=== PATIENT | female | born 1980 | race Caucasian/White ===

== ENCOUNTER 2017-05-17 05:44 | Inpatient (IN) ==
[2017-05-07 11:16] LABS: Apearance,Urine CLEAR (Clear); Bilirubin,Urine Negative (Negative); Blood, Urine Small mg/dL (Negative); Glucose,Urine (UA) Negative (Negative); Ketones,Urine Negative (Negative); Nitrite,Urine Negative (Negative); Protein,Urine Negative; RBC,Urine <1 /HPF (0-4); Squamous Epithelial Cell,Urine Occasional /HPF (0-10); Urine Color Straw (Yellow); Urine Specific Gravity 1.004 (1.001-1.035); Urine Urobilinogen < 2.0 EU/DL (0.2-1.0)
[2017-05-07 11:17] LABS: Immature Granulocytes % 1.5 %; Immature Granulocytes Absolute 0.13 #; Lymphocytes # 0.5 10*3/uL (1.4-4.0); Lymphocytes % 5.8 % (21.3-54.2); Mean Corpuscular Hemoglobin 20 PG (27-34); Mean Platelet Volume 10.5 FL (9.6-12.0); Monocytes # 0.1 10*3/uL (0.11-0.8); Monocytes % 1.6 % (1.7-12.7); Neutrophils # 7.8 10*3/uL (1.4-7.4); Neutrophils % 91.1 % (38.7-73.9); Platelet Count 182 T/CUMM (130-400); Red Blood Count 3.47 MC/CUMM (3.8-5.5); Red Cell Distribution Width 17.1 % (9.3-17.3); White Blood Count 8.5 T/CUMM (4-12)
[2017-05-07 11:23] LABS: PT Patient Result 10.2 SECS; Partial Thromboplastin Time 21.7 SECS (0-40)
[2017-05-07 11:44] LABS: Eosinophils 1 % (0-10); Hypochromasia 1+; Lymphocytes 5 % (20-55); Microcytosis 1+; Ovalocytes Few; Platelet Estimate Adequate; Segmented Neutrophils 90 % (50-85); Total Cells Counted 100
[2017-05-07 11:49] LABS: Calcium 8.4 MG/DL (8.5-10.1); Osmolality,Calculated 280.5 MOS/KG (273-304); Potassium 4.1 MMOL/L (3.5-5.1)
[~2017-05-17 05:44] MED LIST: SODIUM CHLORIDE 0.9% 250 ML IV PRN
[2017-05-17] MEDS ORDERED: CEFUROXIME INJ 1,500 MG in SODIUM CHLORIDE 0.9% 100 ML IV ONE (06:00)
[2017-05-17] MEDS ORDERED: methylPREDNISolone SOD SUC INJ 500 MG in SODIUM CHLORIDE 0.9% 100 ML IV ONE (06:00)
[2017-05-17] MEDS ORDERED: BUPIVACAINE LIPOSOMAL 20 ML/266 MG VIAL INFILTRAT ONE (06:00)
[2017-05-17] MEDS ORDERED: TISSUE ADHESIVE 1 EACH APPLICATOR TOP ONE ×2 (06:32→06:33)
[2017-05-17] MEDS ORDERED: CEFUROXIME 1,500 MG VIAL ONE (06:52)
[2017-05-17] MEDS ORDERED: SODIUM CHLORIDE 0.9% 50 ML IV ONE (06:53)
[2017-05-17] MEDS ORDERED: methylPREDNISolone SOD SUC 1,000 MG/8 ML VIAL ONE (07:02)
[2017-05-17] MEDS ORDERED: ONDANSETRON 4 MG/2 ML VIAL ONE (07:15)
[2017-05-17] MEDS ORDERED: LIDOCAINE 2% 5 ML VIAL ONE (07:15)
[2017-05-17] MEDS ORDERED: PROPOFOL 200 MG/20 ML VIAL IV ONE (07:15)
[2017-05-17] MEDS ORDERED: ROCURONIUM 100 MG/10 ML VIAL IV ONE (07:15)
[2017-05-17] MEDS ORDERED: LACTATED RINGERS 1,000 ML IV SCH (07:30)
[2017-05-17] MEDS ORDERED: THROMBIN TOPICAL (RECOMBINANT) 5,000 UNIT VIAL TOP ONE (07:30)
[2017-05-17] MEDS ORDERED: SUGAMMADEX 200 MG/2 ML VIAL IV ONE (09:40)
[2017-05-17] MEDS ORDERED: ONDANSETRON 4 MG/2 ML VIAL IV PRN (10:07)
[2017-05-17] MEDS ORDERED: SEVOFLURANE 1 UNIT/15 MINUTE INH ONE (10:40)
[2017-05-17] MEDS ORDERED: MIDAZOLAM 2 MG/2 ML VIAL ONE (10:41)
[2017-05-17] MEDS ORDERED: SODIUM CHLORIDE 0.9% 1,000 ML IV ONE (10:41)
[2017-05-17 10:45] LABS: Apearance,Urine CLEAR (Clear); Bilirubin,Urine Negative (Negative); Blood, Urine Negative (Negative); Glucose,Urine (UA) Negative (Negative); Ketones,Urine Negative (Negative); Mucus,Urine Occasional /LPF (Occasional); Nitrite,Urine Negative (Negative); Protein,Urine Negative; RBC,Urine 1 /HPF (0-4); Squamous Epithelial Cell,Urine Occasional /HPF (0-10); Urine Color Yellow (Yellow); Urine Specific Gravity 1.017 (1.001-1.035); Urine Urobilinogen < 2.0 EU/DL (0.2-1.0); WBC,Urine <1 /HPF (0-6)
[2017-05-17 11:14] LABS: Basophils % 0.1 % (0.0-0.8); Immature Granulocytes % 1.8 %; Immature Granulocytes Absolute 0.18 #; Lymphocytes # 0.4 10*3/uL (1.4-4.0); Lymphocytes % 3.9 % (21.3-54.2); Mean Corpuscular HGB Conc 27.6 GM/DL (32-36); Mean Corpuscular Hemoglobin 20 PG (27-34); Mean Platelet Volume 9.6 FL (9.6-12.0); Monocytes # 0.1 10*3/uL (0.11-0.8); Monocytes % 1.3 % (1.7-12.7); Neutrophils # 9.1 10*3/uL (1.4-7.4); Neutrophils % 92.9 % (38.7-73.9); Platelet Count 275 T/CUMM (130-400); Red Blood Count 3.52 MC/CUMM (3.8-5.5); Red Cell Distribution Width 17.4 % (9.3-17.3); White Blood Count 9.8 T/CUMM (4-12)
[2017-05-17 11:16] LABS: Hemoglobin 6.9 GM/DL (12.0-16.0)
[2017-05-17 11:22] LABS: Calcium 7.6 MG/DL (8.5-10.1); Osmolality,Calculated 280.7 MOS/KG (273-304); Potassium 4.5 MMOL/L (3.5-5.1)
[2017-05-17 11:26] LABS: Band Neutrophils 14 % (0-10); Eosinophils 1 % (0-10); Lymphocytes 3 % (20-55); Segmented Neutrophils 80 % (50-85); Total Cells Counted 100
[2017-05-17 11:27] LABS: Anisocytosis 1+; Poikilocytosis 1+; Polychromasia 1+
[2017-05-17] MEDS: POTASSIUM CHLORIDE INJ 10 MEQ in SODIUM CHLORIDE 0.45% 1,000 ML IV SCH ×3 (11:45→22:11)
[2017-05-17] MEDS: HYDROmorphone 2 MG/1 ML VIAL IV PRN ×2 (12:23→18:14)
[2017-05-17] MEDS: KETOROLAC 15 MG/1 ML VIAL IV SCH ×2 (12:51→16:28)
[2017-05-17 13:26] LABS: PT Patient Result 10.9 SECS; Partial Thromboplastin Time 21.9 SECS (0-40)
[2017-05-17] MEDS ORDERED: INFLUENZA VIRUS VACCINE 0.5 ML SYRINGE IM ONE (13:28)
[2017-05-17] MEDS ORDERED: PNEUMOCOCCAL VACCINE (23 VALENT) 0.5 ML VIAL IM ONE (13:32)
[2017-05-17] MEDS: GABAPENTIN 100 MG CAPSULE PO SCH ×2 (15:37→22:15)
[2017-05-17] MEDS: ACETAMINOPHEN INJ 1,000 MG in PREMIX 1 EACH IV SCH ×2 (15:41→22:16)
[2017-05-17] MEDS: CEFUROXIME INJ 1,500 MG in SODIUM CHLORIDE 0.9% 50 ML IV SCH (18:18)
[2017-05-17] MEDS ORDERED: CYCLOBENZAPRINE 10 MG TABLET PO PRN (23:27)
[2017-05-18] MEDS: PYRIDOSTIGMINE 60 MG TABLET PO SCH ×6 (00:22→22:02)
[2017-05-18] MEDS: GABAPENTIN 400 MG CAPSULE PO SCH ×5 (00:23→20:48)
[2017-05-18] MEDS: HYDROmorphone 2 MG/1 ML VIAL IV PRN ×4 (00:57→20:47)
[2017-05-18] MEDS: POTASSIUM CHLORIDE INJ 10 MEQ in SODIUM CHLORIDE 0.45% 1,000 ML IV SCH ×2 (03:59→06:01)
[2017-05-18 04:03] LABS: Hemoglobin 7.9 GM/DL (12.0-16.0); Immature Granulocytes % 0.9 %; Immature Granulocytes Absolute 0.09 #; Lymphocytes # 0.6 10*3/uL (1.4-4.0); Lymphocytes % 5.7 % (21.3-54.2); Mean Corpuscular HGB Conc 30.4 GM/DL (32-36); Mean Corpuscular Hemoglobin 23 PG (27-34); Mean Corpuscular Volume 74.3 FL (87-102); Mean Platelet Volume 9.7 FL (9.6-12.0); Monocytes # 0.6 10*3/uL (0.11-0.8); Monocytes % 5.6 % (1.7-12.7); Neutrophils # 9.1 10*3/uL (1.4-7.4); Neutrophils % 87.8 % (38.7-73.9); Platelet Count 314 T/CUMM (130-400); Red Cell Distribution Width 19.9 % (9.3-17.3); White Blood Count 10.4 T/CUMM (4-12)
[2017-05-18 04:22] LABS: Calcium 8.1 MG/DL (8.5-10.1); Osmolality,Calculated 277.4 MOS/KG (273-304); Potassium 4.4 MMOL/L (3.5-5.1)
[2017-05-18] MEDS: ACETAMINOPHEN 500 MG TABLET PO SCH ×4 (05:56→20:47)
[2017-05-18] MEDS ORDERED: traMADol 50 MG TABLET PO PRN (06:00)
[2017-05-18] MEDS: CEFUROXIME INJ 1,500 MG in SODIUM CHLORIDE 0.9% 50 ML IV SCH (06:01)
[2017-05-18] MEDS ORDERED: CELECOXIB 200 MG CAPSULE PO SCH (09:00)
[2017-05-18] MEDS: CELECOXIB 200 MG CAPSULE PO SCH ×2 (09:34→20:47)
[2017-05-18] MEDS: PANTOPRAZOLE 40 MG VIAL IV SCH (09:34)
[2017-05-18] MEDS: busPIRone 10 MG TABLET PO SCH ×4 (09:35→20:49)
[2017-05-18] MEDS: ESCITALOPRAM 10 MG TABLET PO SCH (09:36)
[2017-05-18] MEDS: predniSONE 20 MG TABLET PO SCH (09:36)
[2017-05-18] MEDS ORDERED: PYRIDOSTIGMINE 60 MG TABLET PO SCH (12:11)
[2017-05-18] MEDS ORDERED: CYCLOBENZAPRINE 10 MG TABLET PO PRN (12:11)
[2017-05-18] MEDS ORDERED: NON-FORMULARY MEDICATION (Gabapentin [Neurontin] 800 MG) PO SCH (13:00)
[2017-05-19] MEDS: busPIRone 10 MG TABLET PO SCH ×7 (00:59→21:07)
[2017-05-19] MEDS: HYDROmorphone 2 MG/1 ML VIAL IV PRN ×5 (03:45→22:35)
[2017-05-19 04:09] LABS: Basophils % 0.1 % (0.0-0.8); Hematocrit 25.5 VOL% (35.7-47.0); Hemoglobin 7.6 GM/DL (12.0-16.0); Immature Granulocytes % 0.7 %; Immature Granulocytes Absolute 0.06 #; Lymphocytes # 1.3 10*3/uL (1.4-4.0); Lymphocytes % 15.1 % (21.3-54.2); Mean Corpuscular HGB Conc 29.8 GM/DL (32-36); Mean Corpuscular Hemoglobin 22 PG (27-34); Mean Platelet Volume 10.1 FL (9.6-12.0); Monocytes # 0.6 10*3/uL (0.11-0.8); Monocytes % 6.7 % (1.7-12.7); Neutrophils # 6.7 10*3/uL (1.4-7.4); Neutrophils % 77.4 % (38.7-73.9); Platelet Count 309 T/CUMM (130-400); Red Cell Distribution Width 20.2 % (9.3-17.3); White Blood Count 8.6 T/CUMM (4-12)
[2017-05-19 04:38] LABS: Calcium 8.1 MG/DL (8.5-10.1); Osmolality,Calculated 284.1 MOS/KG (273-304); Potassium 3.8 MMOL/L (3.5-5.1)
[2017-05-19] MEDS: ACETAMINOPHEN 500 MG TABLET PO SCH ×5 (05:23→21:06)
[2017-05-19] MEDS: PYRIDOSTIGMINE 60 MG TABLET PO SCH ×6 (07:20→21:06)
[2017-05-19] MEDS: PANTOPRAZOLE 40 MG VIAL IV SCH (08:30)
[2017-05-19] MEDS: CELECOXIB 200 MG CAPSULE PO SCH ×2 (08:30→21:06)
[2017-05-19] MEDS: DILTIAZEM CD 240 MG CAPSULE PO SCH (08:30)
[2017-05-19] MEDS: ESCITALOPRAM 10 MG TABLET PO SCH (08:30)
[2017-05-19] MEDS: GABAPENTIN 400 MG CAPSULE PO SCH ×4 (08:31→21:06)
[2017-05-19] MEDS: predniSONE 20 MG TABLET PO SCH (08:31)
[2017-05-19] MEDS ORDERED: predniSONE 20 MG TABLET PO SCH (09:00)
[2017-05-19] MEDS ORDERED: NON-FORMULARY MEDICATION (Esomeprazole Magnesium [Nexium] 40 MG) PO SCH (09:00)
[2017-05-19] MEDS ORDERED: CELECOXIB 200 MG CAPSULE PO SCH (09:00)
[2017-05-19] MEDS ORDERED: ESCITALOPRAM 10 MG TABLET PO SCH (09:00)
[2017-05-20] MEDS: ACETAMINOPHEN 500 MG TABLET PO SCH ×2 (04:43→09:15)
[2017-05-20 06:15] LABS: Eosinophils # 0.1 10*3/uL (0.0-0.87); Eosinophils % 0.5 % (0.00-10.9); Hematocrit 25.8 VOL% (35.7-47.0); Hemoglobin 7.5 GM/DL (12.0-16.0); Immature Granulocytes % 1.1 %; Lymphocytes # 1.9 10*3/uL (1.4-4.0); Lymphocytes % 20.2 % (21.3-54.2); Mean Corpuscular HGB Conc 29.1 GM/DL (32-36); Mean Corpuscular Hemoglobin 22 PG (27-34); Mean Corpuscular Volume 75.7 FL (87-102); Mean Platelet Volume 9.9 FL (9.6-12.0); Monocytes # 0.7 10*3/uL (0.11-0.8); Monocytes % 7.8 % (1.7-12.7); Neutrophils # 6.5 10*3/uL (1.4-7.4); Neutrophils % 70.4 % (38.7-73.9); Platelet Count 295 T/CUMM (130-400); Red Blood Count 3.41 MC/CUMM (3.8-5.5); Red Cell Distribution Width 20.1 % (9.3-17.3); White Blood Count 9.3 T/CUMM (4-12)
[2017-05-20] MEDS: PYRIDOSTIGMINE 60 MG TABLET PO SCH ×2 (06:44→09:17)
[2017-05-20] MEDS: HYDROmorphone 2 MG/1 ML VIAL IV PRN ×2 (06:44→11:18)
[2017-05-20 06:47] LABS: Calcium 8.4 MG/DL (8.5-10.1); Osmolality,Calculated 282.1 MOS/KG (273-304); Potassium 4.1 MMOL/L (3.5-5.1)
[2017-05-20] MEDS: GABAPENTIN 400 MG CAPSULE PO SCH ×2 (09:15→12:05)
[2017-05-20] MEDS: busPIRone 10 MG TABLET PO SCH (09:15)
[2017-05-20] MEDS: predniSONE 20 MG TABLET PO SCH (09:15)
[2017-05-20] MEDS: ESCITALOPRAM 10 MG TABLET PO SCH (09:15)
[2017-05-20] MEDS: DILTIAZEM CD 240 MG CAPSULE PO SCH (09:16)
[2017-05-20] MEDS: PANTOPRAZOLE 40 MG VIAL IV SCH (09:20)
[2017-05-20] MEDS: CELECOXIB 200 MG CAPSULE PO SCH (09:24)
[2017-05-20] MEDS ORDERED: FLUCONAZOLE 200 MG TABLET PO SCH (11:00)
[2017-05-20] MEDS ORDERED: NYSTATIN 500,000 UNIT/5 ML UDCUP SWISH/SWAL SCH (13:00)
[2017-05-24] MEDS ORDERED: ERGOCALCIFEROL 50,000 UNIT CAPSULE PO SCH (23:30)
[2017-05-25] MEDS ORDERED: ERGOCALCIFEROL 50,000 UNIT CAPSULE PO SCH (09:00)
== END 2017-05-20 16:00 | disposition home or self-care (01) | DRG 165 ==
LOC: N.SDSINP 05:44 → N.ICU 10:42 → N.TELES 05-18 11:23
PROVIDERS: ADMIT Thoracic Surgery (Cardiothoracic Vascular Surgery); ATTEND Thoracic Surgery (Cardiothoracic Vascular Surgery)